=== PATIENT | female | born 1955 | race Caucasian/White ===

== ENCOUNTER 2017-04-12 09:58 | Inpatient (IN) | payer OTHER ==
[~2017-04-12] VITALS: Ht 167.6 cm; Wt 111.0 kg
[2017-04-12] MEDS ORDERED: LEVETIRACETAM 1000 MG (PMX) 100 ML IVPB STA (10:21)
[2017-04-12] MEDS ORDERED: ONDANSETRON 4 MG INJ IV STA (11:28)
[2017-04-12] MEDS ORDERED: SOD CHLORIDE 0.9% 1,000 ML IV STA (11:28)
[2017-04-12] MEDS ORDERED: MECLIZINE 12.5 MG TAB PO ONE (11:30)
[2017-04-12 11:46] LABS: BASOPHILS % 0.1 % (0.0-2.0); EOSINOPHILS # 0.1 10^3/ul (0.0-0.5); EOSINOPHILS % 1.5 % (0.0-7.0); HEMATOCRIT 32.2 % (37.0-47.0); HEMOGLOBIN 9.6 g/dl (12.0-16.0); LYMPHOCYTES # 1.8 10^3/ul (0.8-2.9); LYMPHOCYTES % 23.9 % (15.0-51.0); MEAN CORPUSCULAR HEMOGLOBIN 22.2 pg (29.0-33.0); MEAN CORPUSCULAR HGB CONC 29.8 g/dl (32.0-37.0); MEAN CORPUSCULAR VOLUME 74.5 fl (82.0-101.0); MEAN PLATELET VOLUME 10.4 fl (7.4-10.4); MONOCYTE # 0.8 10^3/ul (0.3-0.9); MONOCYTES % 10.5 % (0.0-11.0); NEUTROPHIL # 4.8 10^3/ul (1.6-7.5); NEUTROPHILS % 63.7 % (39.0-77.0); PLATELET COUNT 327 10^3/UL (140-415); RED BLOOD COUNT 4.32 10^6/ul (4.20-5.40); WHITE BLOOD COUNT 7.5 10^3/ul (4.8-10.8)
[2017-04-12 12:09] LABS: ALBUMIN/GLOBULIN RATIO 1.08; BILIRUBIN,INDIRECT 0.1 mg/dl (0-1.1); BILIRUBIN,TOTAL 0.1 mg/dl (0.2-1.3); CALCIUM 9.2 mg/dl (8.4-10.2); CREATININE 0.7 mg/dl (0.44-1.00); POTASSIUM 4.4 mmol/L (3.5-5.1); TOTAL PROTEIN 7.7 g/dl (6.1-8.1)
--- NOTE | 2017-04-12 14:11 | ERA ---
ER Documentation Chief Complaint Date/Time DATE: 04/12/17 TIME: 14:05 Chief Complaint SZ WHILE AT CLINIC. NO TRAUMA. NO NEURO DEF. NO DISTRESS NOTED. HPI This is a very pleasant 61-year-old female with a known history of epilepsy and high cholesterol. The patient states that over the past 48 hours she has felt weak and dizzy and lightheaded she has had multiple episodes where she felt as though she was going to pass out. She states she made an appointment today at the clinic for further evaluation. Awaiting in the clinic she had a witnessed tonic-clonic seizure. She stated she had not taken her antiepileptic medication this morning due to the severe dizziness. She did not lose urinary incontinence or bite her tongue during the seizure activity which lasted for roughly 1 minute. The patient did not fall or hit her head during the seizure activity. 911 was called and the patient was immediately transferred to the emergency department to be further evaluated. The patient denies a headache or neck pain. She has had no fevers or shaking or chills. She denies any frequency urgency or dysuria. She denies any numbness or tingling of her upper or lower extremities. The patient states she does take Lasix but is unaware if she has a history of congestive heart failure. She also has a history of emphysema and quit tobacco 5 years prior to arrival. She never required intubation in the past but utilizes her albuterol inhaler on a daily basis. [place] any difficulty breathing at this time. She denies any shortness of breath at rest or exertion. ROS All systems reviewed and are negative except as per history of present illness. 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 Well-nourished. HEENT:Normocephalic. Atraumatic.Pupils were equal round reactive to light. Moist mucous membranes.No tonsillar exudates. Endoscopy exam shows sharp optic disc bilaterally and venous pulsations are present. He is a septal hematoma. No hemotympanum. No lacerations of the oropharynx or tongue. Neck: No nuchal rigidity. No lymphadenopathy. No posterior cervical spine tenderness or step-offs. Respiratory: Not using accessory muscles of respiration.Lungs were clear to auscultation bilaterally. No rhonchi. No rales. No wheezing. Cardiovascular: Regular rate regular rhythm.No murmurs. No rubs were appreciated.S1, S2 normal. Distal pulses are palpable 2+ bilaterally. GI: Abdomen was soft. Nontender. Non Distended. No pulsatile abdominal masses or bruits. No rebound. No guarding. Bowel sounds were present and normal. Muscle skeletal: Full range of motion of both the upper and lower extremities bilaterally.Normal muscle tone.No assymetrical calf tenderness or swelling. Skin: No petechia, no purpura. No lesions on the palms or the soles of the feet. No maculopapular rash. NEURO: Patient was alert, awake, orientated x3.No facial droop. Gait observed and normal with no ataxia.Speech had regular rate and rhythm. No focal neurological deficits. Result Diagram: 04/12/17 1127 04/12/17 1127 Results 24 hrs Laboratory Tests Test 04/12/17 11:27 White Blood Count 7.510^3/ul Red Blood Count 4.3210^6/ul Hemoglobin 9.6g/dl Hematocrit 32.2% Mean Corpuscular Volume 74.5fl Mean Corpuscular Hemoglobin 22.2pg Mean Corpuscular Hemoglobin Concent 29.8g/dl Red Cell Distribution Width 17.0% Platelet Count 23355^3/UL Mean Platelet Volume 10.4fl Neutrophils % 63.7% Lymphocytes % 23.9% Monocytes % 10.5% Eosinophils % 1.5% Basophils % 0.1% Nucleated Red Blood Cells % 0.0/100WBC Neutrophils # 4.810^3/ul Lymphocytes # 1.810^3/ul Monocytes # 0.810^3/ul Eosinophils # 0.110^3/ul Basophils # 0.010^3/ul Nucleated Red Blood Cells # 0.010^3/ul Sodium Level 140mmol/L Potassium Level 4.4mmol/L Chloride Level 107mmol/L Carbon Dioxide Level 26mmol/L Anion Gap 11 Blood Urea Nitrogen 17mg/dl Creatinine 0.70mg/dl Glucose Level 77mg/dl Calcium Level 9.2mg/dl Total Bilirubin 0.1mg/dl Direct Bilirubin 0.00mg/dl Indirect Bilirubin 0.1mg/dl Aspartate Amino Transf (AST/SGOT) 34IU/L Alanine Aminotransferase (ALT/SGPT) 41IU/L Alkaline Phosphatase 77IU/L Total Protein 7.7g/dl Albumin 4.0g/dl Globulin 3.70g/dl Albumin/Globulin Ratio 1.08 Current Medications Medications (Trade) Dose Ordered Sig/Belinda Route PRN Reason Start Time Stop Time Status Last Admin Dose Admin Levetiracetam (Keppra 1,000mg/ 100ml (Pmx)) 100 ml @ 400 mls/hr ONCE STAT IVPB 04/12/17 10:21 04/12/17 10:35 DC 04/12/17 11:03 Meclizine HCl (Antivert) 25 mg ONCE ONCE PO 04/12/17 11:30 04/12/17 11:31 DC 04/12/17 11:38 Ondansetron HCl 4 mg 4 mg ONCE STAT IV 04/12/17 11:28 04/12/17 11:29 DC 04/12/17 11:38 Sodium Chloride (NS) 1,000 ml @ 1,000 mls/hr Q1H STAT IV 04/12/17 11:28 04/12/17 12:27 DC 04/12/17 11:38 Procedures/MDM This patient was seen and evaluated by myself. The patient presented to the emergency department complaining of dizziness. My differential diagnosis included but was not limited to hypovolemia, myocardial infarction, pulmonary embolism, hypoglycemia, hypoxia, anemia, vasovagal episode, hypothyroidism, anxiety, peripheral or central vertigo. The patient was placed on a cardiac rn, continuous pulse oximetry and IV access established by nursing staff. He received Zofran and Antivert with no improvement of her symptoms. CT scan of the head which showed no acute intracerebral hemorrhage mass-effect or midline shift. Please note that when the patient arrived she had had a witnessed tonic-clonic seizure just prior to arrival and was placed in seizure precautions and given IV Keppra prophylactically. The patient had no seizure activity while in the emergency department. 12 Lead EKG tracing ordered and reviewed by myself showed: Normal sinus rhythm of 84 bpm and no arrhythmia. NM interval normal. QRS duration normal. No ST segment elevation No ST segment depression. No changes consistent with acute ischemia. The patient will be admitted to the hospitalist for further evaluation hospitalist Dr. Galan. Departure Diagnosis: Primary Impression: Near syncope Additional Impression: Breakthrough seizure Condition: Serious Patient Instructions: Seizure, Recurrent [Adult] LUIS ARMANDO FRANCO Apr 12, 2017 14:11
--- NOTE | 2017-04-12 14:27 | RADRPT ---
PROCEDURE: CT Brain without contrast. CLINICAL INDICATION: Near syncope, headache. TECHNIQUE: A CT of the brain was performed on multidetector high-resolution CT scanner utilizing a xial sections from the skull base through the vertex without contrast. The scan was reviewed in sof t tissue brain and high frequency resolution bone algorithm windows. Images were reviewed on a high -resolution PACS workstation. One or more the following does reduction techniques were utilized: Aut omated exposure control, adjustment of the mA/ or kV according to patient's size, or use of iterativ e reconstruction technique. The exam CTDI = 44.46 mGy and the DLP = 630.2 mGy-cm. COMPARISON: None available. FINDINGS: The ventricles and sulci are mildly prominent indicative of volume loss. There is no intracranial h emorrhage, mass effect or midline shift. No abnormal intra-axial or extra-axial fluid collections a re seen. The fleming/white matter differentiation is preserved. There are mild scattered foci of hypoattenuation in the white matter, which are nonspecific in etiol ogy but likely reflect chronic small vessel ischemic changes. There are minimal intracranial vascul ar calcifications consistent with atherosclerosis. The visualized paranasal sinuses are essentially clear. IMPRESSION: 1. No acute intracranial hemorrhage, transcortical infarction or mass effect. 2. Minimal intracranial atherosclerosis and mild chronic small vessel ischemic changes. 3. Mild generalized cerebral volume loss. RPTAT: HH .Karol Belcher MD, MD Date Time Electronically viewed and signed by .Karol Belcher MD, MD on 04/12/2017 14:27 .N/
--- NOTE | 2017-04-12 14:28 | RADRPT ---
PROCEDURE: XR Chest. CLINICAL INDICATION: Chest pain. TECHNIQUE: Single frontal view. COMPARISON: None. FINDINGS: The lungs are clear. The heart size is normal. There is no pleural effusion. There is no pneumothorax. IMPRESSION: 1. Normal chest radiograph. RPTAT: QQ .Gareth Waller MD, Date Time Electronically viewed and signed by .Gareth Waller MD, on 04/12/2017 14:27 .R/
[2017-04-12] MEDS ORDERED: ACETAMINOPHEN 325 MG TAB PO PRN ×2 (14:30→16:00)
[2017-04-12] MEDS ORDERED: ONDANSETRON 4 MG INJ IV PRN ×2 (14:30→16:00)
[2017-04-12] MEDS ORDERED: CYCL-319 PO (15:03)
[2017-04-12] MEDS ORDERED: FURO40TA4 PO (15:11)
[2017-04-12] MEDS ORDERED: ALBU18HF INHALATION (15:12)
[2017-04-12] MEDS ORDERED: GABA300C16 PO (15:12)
[2017-04-12] MEDS ORDERED: ZOLP10TA5 PO (15:12)
[2017-04-12] MEDS ORDERED: TOPI25CA2 PO (15:13)
[2017-04-12] MEDS ORDERED: BUPR150T6 PO (15:13)
[2017-04-12] MEDS ORDERED: TIOT18CA INHALATION (15:14)
[2017-04-12 15:56] LABS: CREATINE KINASE 97 IU/L (23-200)
[2017-04-12] MEDS ORDERED: ALBUTEROL/IPRATROPIUM (NEB) 3 ML AMP HHN PRN (16:00)
[2017-04-12] MEDS ORDERED: NACL 0.9% 3 ML SYG IV SCH (16:00)
[2017-04-12] MEDS ORDERED: NA PHOSPHATE/BIPHOS 133 ML ENEMA PR PRN (16:00)
[2017-04-12] MEDS ORDERED: NITROGLYCERIN (SL) 0.4 MG TAB SL PRN (16:00)
[2017-04-12] MEDS ORDERED: hydrALAzine 20 MG INJ IV PRN (16:00)
[2017-04-12 16:08] LABS: B-TYPE NATRIURETIC PEPTIDE 18 PG/ML (0-125); CK-MB 0.53 ng/ml (0.0-2.4)
[2017-04-12 16:20] LABS: TROPONIN-I < 0.012 ng/ml (0.00-0.12)
[2017-04-12 16:57] VITALS: TEMP 98.2
[2017-04-12] MEDS ORDERED: LEVETIRACETAM 1000 MG (PMX) 100 ML IVPB SCH (17:00)
--- NOTE | 2017-04-12 17:18 | HP ---
DATE OF ADMISSION: 04/12/2017 CHIEF COMPLAINT: Seizure activity earlier today. HISTORY OF PRESENT ILLNESS: A 61-year-old female with past medical history of emphysema, questionable CHF, high cholesterol and prior seizure since 1979, low back pain who has been feeling weak and dizziness for the last 48 hours. She went to her primary care doctor's office earlier today but ended up having tonic-clonic seizure which lasted about 1 minute. No tongue biting. No leakage of any stool or urine. She apparently did not hit her head as well. She denies any fevers or chills. No upper or lower GI bleeding. No nausea or vomiting. No diarrhea. No constipation. She has had seizures since 1979. Her last seizure activity was about eight months ago. PAST MEDICAL HISTORY: As above. ALLERGIES: NO KNOWN DRUG ALLERGIES. HOME MEDICATIONS: Ventolin HFA 2 puffs inhaled every 6 hours, cyclobenzaprine 10 mg every 8 hours p.r.n., Spiriva inhaled daily, bupropion XL 150 mg daily, gabapentin 300 mg b.i.d., Ambien 10 mg at bedtime, topiramate 25 mg every evening, Lasix 40 mg daily. PAST SURGICAL HISTORY: She has had bilateral ankle surgery in the past. 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 Former smoker, quit about five years ago. FAMILY HISTORY: Noncontributory. PHYSICAL EXAMINATION: VITAL SIGNS: Today, T-max 98.8, pulse 88, respirations 20, blood pressure 138/75, satting 98% room air. GENERAL: Patient is lying in bed answering questions appropriately. No acute distress, alert and orient x3. HEENT: Pupils equal, round, react to light. Extraocular muscles intact. NECK: Supple. No thyromegaly. LUNGS: Clear to auscultation bilaterally. CARDIOVASCULAR: S1, S2 heard. No rubs or gallops. ABDOMEN: Soft, nontender, nondistended. Normal bowel sounds. No rebound or guarding. MUSCULOSKELETAL: No lower extremity edema bilaterally. NEUROLOGIC: No focal deficits. LABS: WBC 7.5, hemoglobin 9.6, hematocrit 33.2, platelets 327,000. The comprehensive metabolic panel is normal. DIAGNOSTICS: Head CT was performed today and shows no acute intracranial hemorrhages, infarctions or mass effect. Chest x-ray shows normal chest radiograph. ASSESSMENT AND PLAN: A 61-year-old female coming in with dizziness and lightheadedness for two days with seizure activity earlier today. 1. Seizure activity. Again, patient has had a history of seizures since 1979. Will admit the patient. Do neuro checks every 4 hours. Get EEG. Get neurology consult. Put her on Keppra 1000 mg IV b.i.d. Continue her topiramate as well. Consider checking a drug screen. 2. History of low back pain. For now, she will be on gabapentin and [place] p.r.n. 3. History of chronic obstructive pulmonary disease. Will continue Ventolin. Also DuoNebs p.r.n. as well. Consider restarting Spiriva. 4. Questionable history of congestive heart failure. She does take p.o. Lasix at home. No lower extremity swelling noted on the physical exam. Normal chest radiograph was found as well. Will go ahead and order 2D echocardiogram as well. Continue p.o. Lasix. 5. Deep venous thrombosis prophylaxis. Heparin subcutaneously. Consider physical therapy consult as well. Dictated By: Tank Fu MD /alverto/vangie /Document#: [id number]
[2017-04-12] MEDS ORDERED: ALBUTEROL 18 GM INHALER INH SCH (17:30)
[2017-04-12 18:04] VITALS: PULSE 90
[2017-04-12 18:32] VITALS: Ht 167.6 cm; Wt 111.0 kg
[2017-04-12 20:16] VITALS: BP 109/59; PULSE 89; RESP 20
[2017-04-12] MEDS: GABAPENTIN 300 MG CAP PO SCH (21:15)
[2017-04-12] MEDS: LEVETIRACETAM 1000 MG (PMX) 100 ML IVPB SCH (21:16)
[2017-04-12] MEDS: HEPARIN 5,000 UNIT/0.5 ML VIAL SC SCH (21:30)
[2017-04-12] MEDS: LORAZEPAM 2 MG INJ IV PRN (22:04)
[2017-04-12] MEDS: ZOLPIDEM 5 MG TAB PO PRN (23:13)
[2017-04-12] MEDS: ALBUTEROL 18 GM INHALER INH SCH (23:14)
[2017-04-12] MEDS: TOPIRAMATE SPRINKLE 25 MG CAP PO SCH (23:14)
--- NOTE | 2017-04-12 23:41 | RADRPT ---
PROCEDURE: MRI Brain without contrast. CLINICAL INDICATION: Near syncopal episode and seizure this morning TECHNIQUE: An MRI of the brain was performed on a high resolution hi-definition Lucidity (Member[employer]) 3.0 Shirley MRI s nelia utilizing the following sequences: Sagittal and axial T1 weighted, axial T2 weighted, coronal GRE, axial diffusion weighted with ADC mapping, coronal GRE, and axial FLAIR. COMPARISON: CT brain 04/12/2017 FINDINGS: The scalp and calvarium are normal. The orbits are normal. The bilateral paranasal sinuses demonstra te mild chronic mucosal thickening in the bilateral ethmoid and maxillary sinuses. The bilateral ma stoid air cells and middle ear cavities are clear. Punctate foci of FLAIR and T2-weighted sequences is noted in the bilateral subcortical white matter, bilateral centrum semiovale, bilateral periventricular white matter, and the tapan. This is compatib le with mild chronic microvascular ischemic disease. The ventricles and sulci are age appropriate. Mild diffuse volume loss is present. An empty sella is present. No evidence of intracranial hemorrha ge, mass effect or midline shift is present. . No diffusion weighted abnormalities are seen to sugge st the presence of acute ischemia or recent infarct. No hypointense signal abnormalities are seen o n the GRE images to suggest the presence of blood degradation products. Normal flow voids are vi sible in the proximal intracranial arteries and dural sinuses, indicating patency. IMPRESSION: 1. No evidence for acute intracranial infarcts, hemorrhage, or acute intracranial pathology. 2. Mild chronic microvascular ischemic disease and diffuse volume loss. 3. Mild chronic bilateral ethmoid and maxillary sinus disease RPTAT: HDC .Bhumika Oreilly MD, Date Time Electronically viewed and signed by .Bhumika Oreilly MD, MD on 04/12/2017 23:41 .C/
[2017-04-13] VITALS (12 sets, daily range): BP systolic 91–118; BP diastolic 52–66; PULSE 66–100; RESP 18–20
[2017-04-13] MEDS: ALBUTEROL 18 GM INHALER INH SCH ×4 (02:00→21:46)
[2017-04-13] MEDS: HYDROCODONE/APAP (5/325) TAB PO PRN (08:52)
[2017-04-13] MEDS: GABAPENTIN 300 MG CAP PO SCH ×2 (08:52→21:33)
[2017-04-13] MEDS: FUROSEMIDE 40 MG TAB PO SCH (08:53)
[2017-04-13] MEDS: HEPARIN 5,000 UNIT/0.5 ML VIAL SC SCH ×2 (08:57→21:34)
[2017-04-13] MEDS ORDERED: INFLUENZA VIRUS VACCINE 0.5 ML SYG IM* ONE (09:00)
[2017-04-13 09:03] LABS: BASOPHILS % 0.2 % (0.0-2.0); EOSINOPHILS # 0.1 10^3/ul (0.0-0.5); EOSINOPHILS % 2.4 % (0.0-7.0); HEMATOCRIT 31.4 % (37.0-47.0); HEMOGLOBIN 9.1 g/dl (12.0-16.0); LYMPHOCYTES # 1.2 10^3/ul (0.8-2.9); LYMPHOCYTES % 25.9 % (15.0-51.0); MEAN CORPUSCULAR HEMOGLOBIN 22.1 pg (29.0-33.0); MEAN CORPUSCULAR VOLUME 76.4 fl (82.0-101.0); MEAN PLATELET VOLUME 10.8 fl (7.4-10.4); MONOCYTE # 0.5 10^3/ul (0.3-0.9); MONOCYTES % 10.4 % (0.0-11.0); NEUTROPHIL # 2.8 10^3/ul (1.6-7.5); NEUTROPHILS % 60.9 % (39.0-77.0); PLATELET COUNT 266 10^3/UL (140-415); RED BLOOD COUNT 4.11 10^6/ul (4.20-5.40); WHITE BLOOD COUNT 4.5 10^3/ul (4.8-10.8)
[2017-04-13 09:34] LABS: CHOL/HDL RATIO 4.2 RATIO
[2017-04-13 09:37] LABS: CALCIUM 8.6 mg/dl (8.4-10.2); CREATININE 0.73 mg/dl (0.44-1.00); MAGNESIUM 2.1 mg/dl (1.7-2.5); PHOSPHORUS 4.2 mg/dl (2.5-4.9); POTASSIUM 4.3 mmol/L (3.5-5.1)
[2017-04-13 10:05] LABS: THYROID STIMULATING HORMONE 1.5 MIU/L (0.465-4.680)
[2017-04-13] MEDS: LEVETIRACETAM 1000 MG (PMX) 100 ML IVPB SCH ×2 (10:09→21:33)
[2017-04-13] MEDS: LORAZEPAM 2 MG INJ IV PRN (10:15)
--- NOTE | 2017-04-13 15:45 | PN ---
Date/Time of Note Date/Time of Note DATE: 04/13/17 TIME: 15:39 Assessment/Plan VTE Prophylaxis VTE Prophylaxis Intervention: heparin Lines/Catheters IV [facility] Urinary Cath still in place: No Assessment/Plan Chief Complaint/Hosp Course ASSESSMENT AND PLAN: 61-year-old female coming in with dizziness and lightheadedness for two days with seizure activity the day of admission. 1. Seizure activity. Again, patient has had a history of seizures since 1979. -Continue neuro checks every 4 hours. -Follow-up EEG results and neurology consult rec's. - Continue Keppra 1000 mg IV b.i.d. Continue her topiramate as well. - Consider checking a drug screen. 2. History of low back pain. For now, she will be on gabapentin and [place]ike p.r.n. 3. History of chronic obstructive pulmonary disease. Will continue Ventolin. Also DuoNebs p.r.n. as well. Consider restarting Spiriva. 4. Questionable history of congestive heart failure. She does take p.o. Lasix at home. No lower extremity swelling noted on the physical exam. Normal chest radiograph was found as well. - Follow-up 2D echocardiogram as well. - Continue p.o. Lasix. 5. Deep venous thrombosis prophylaxis. Heparin subcutaneously. Consider physical therapy consult as well. Problems: Subjective 24 Hr Interval Summary Free Text/Dictation Per nursing staff no seizure activity since admission. EEG results still pending. Exam/Review of Systems Vital Signs Vitals Vital Signs Date Time Temp Pulse Resp B/P Pulse Ox O2 Delivery O2 Flow Rate FiO2 04/13/17 13:12 100 04/13/17 11:50 98.1 18 91/63 97 04/13/17 08:15 Nasal Cannula 2.0 Intake and Output 04/12/17 04/12/17 04/13/17 15:00 23:00 07:00 Intake Total 400 ml 0 ml Balance 400 ml 0 ml Exam GENERAL: Patient is sleeping, no acute distress, alert and orient x3. HEENT: Pupils equal, round, react to light. Extraocular muscles intact. NECK: Supple. No thyromegaly. LUNGS: Clear to auscultation bilaterally. CARDIOVASCULAR: S1, S2 heard. No rubs or gallops. ABDOMEN: Soft, nontender, nondistended. Normal bowel sounds. No rebound or guarding. MUSCULOSKELETAL: No lower extremity edema bilaterally. NEUROLOGIC: No focal deficits. Results Result Diagram: 04/13/17 0808 04/13/17 0808 Results 24 hrs Laboratory Tests Test 04/13/17 08:08 White Blood Count 4.5 #L Red Blood Count 4.11 L Hemoglobin 9.1 L Hematocrit 31.4 L Mean Corpuscular Volume 76.4 L Mean Corpuscular Hemoglobin 22.1 L Mean Corpuscular Hemoglobin Concent 29.0 L Red Cell Distribution Width 17.0 H Platelet Count 266 Mean Platelet Volume 10.8 H Neutrophils % 60.9 Lymphocytes % 25.9 Monocytes % 10.4 Eosinophils % 2.4 Basophils % 0.2 Nucleated Red Blood Cells % 0.0 Neutrophils # 2.8 Lymphocytes # 1.2 Monocytes # 0.5 Eosinophils # 0.1 Basophils # 0.0 Nucleated Red Blood Cells # 0.0 Sodium Level 142 Potassium Level 4.3 Chloride Level 107 Carbon Dioxide Level 30 Anion Gap 9 Blood Urea Nitrogen 14 Creatinine 0.73 Glucose Level 106 Hemoglobin A1c 5.8 Calcium Level 8.6 Phosphorus Level 4.2 Magnesium Level 2.1 Triglycerides Level 154 H Cholesterol Level 128 LDL Cholesterol, Calculated 67 HDL Cholesterol 30 L Cholesterol/HDL Ratio 4.2 Thyroid Stimulating Hormone (TSH) 1.500 Medications Medications Current Medications Ondansetron HCl (Zofran Inj) 4 mg Q6H PRN IV NAUSEA AND/OR VOMITING; Start at 16:00 Acetaminophen (Tylenol Tab) 650 mg Q6H PRN PO PAIN LEVEL 1-3 OR FEVER; Start at 16:00 Acetaminophen/ Hydrocodone Bitart (Pike (5/325)) 1 tab Q6H PRN PO MODERATE PAIN LEVEL 4-6 Last administered on 04/13/17t 08:52; Admin Dose 1 TAB; Start at 16:00 Morphine Sulfate (morphine) 2 mg Q4H PRN IV SEVERE PAIN LEVEL 7-10; Start 04/12 at 16:00 Docusate Sodium (Colace) 100 mg Q12H PRN PO CONSTIPATION; Start 04/12/17 at 16: 00 Magnesium Hydroxide (Milk Of Mag) 30 ml DAILY PRN PO CONSTIPATION; Start at 16:00 Sodium Biphosphate/ Sodium Phosphate (Fleet Enema) 133 ml DAILY PRN [place] CONSTIPATION; Start 04/12/17 at 16:00 Heparin Sodium (Porcine) (Heparin (5000 Units/0.5 ml)) 5,000 unit Q12 SC Last administered on 04/13/17 08:57; Admin Dose 5,000 UNIT; Start 04/12/17 at 21:00 Lorazepam (Ativan) 0.5 mg Q6H PRN IV ANXIETY Last administered on 04/13/17 10: 15; Admin Dose 0.5 MG; Start 04/12/17 at 16:00 Hydralazine HCl (Apresoline) 10 mg Q6H PRN IV ELEVATED BLOOD PRESSURE; Start at 16:00 Nitroglycerin (Nitroglycerin (Sl Tab) 0.4 Mg) 1 tab Q5M PRN SL ANGINA; Start at 16:00 Furosemide (Lasix) 40 mg DAILY PO Last administered on 04/13/17 08:53; Admin Dose 40 MG; Start 04/13/17 at 09:00 Gabapentin (Neurontin) 300 mg BID PO Last administered on 04/13/17 08:52; Admin Dose 300 MG; Start 04/12/17 at 21:00 Topiramate (Topamax Sprinkle) 25 mg QPM PO Last administered on 04/12/17 23:14 ; Admin Dose 25 MG; Start 04/12/17 at 21:00 Zolpidem Tartrate 10 mg 10 mg QHS PRN PO INSOMNIA Last administered on 23:13; Admin Dose 10 MG; Start 04/12/17 at 16:00 Levetiracetam (Keppra 1,000mg/ 100ml (Pmx)) 100 ml @ 400 mls/hr Q12 IVPB Last administered on 04/13/17 10:09; Admin Dose 400 MLS/HR; Start 04/12/17 at 21:00 CHEYENNE JACKSON Apr 13, 2017 15:45
[2017-04-13] MEDS: TOPIRAMATE SPRINKLE 25 MG CAP PO SCH (21:33)
[2017-04-13] MEDS: ZOLPIDEM 5 MG TAB PO PRN (21:46)
[2017-04-14] VITALS (11 sets, daily range): BP systolic 96–114; BP diastolic 61–72; PULSE 79–100; RESP 18–19
[2017-04-14] MEDS: ALBUTEROL 18 GM INHALER INH SCH ×4 (02:19→21:08)
--- NOTE | 2017-04-14 06:40 | PN ---
DATE: 04/14/2017 ELECTROENCEPHALOGRAM: The patient is a 61-year-old lady with a past medical history of seizures, when the patient suffered seizure activity while she was in the doctor's office, kind of tonoclonic. EEG done using 10-20 international electrode system with photic stimulation. Bilateral occipital hemispheres showed delta and theta waves, 4-7 Hertz, low amplitude, symmetric bilaterally. Some electromyogram artifact recorded. Some sharp waves recorded in the left temporal area. IMPRESSION: This is an abnormal electroencephalogram showing sharp waves on top of generalized slowing consistent with a history of underlying postictal status. Follow-up EEG may be needed if clinically indicated. Again, thank you. Dictated By: Fili Nagel MD /alverto/jessica /Document#: [id number]
[2017-04-14] MEDS: LEVETIRACETAM 1000 MG (PMX) 100 ML IVPB SCH ×2 (09:33→21:19)
[2017-04-14] MEDS: GABAPENTIN 300 MG CAP PO SCH ×2 (09:33→21:08)
[2017-04-14] MEDS: FUROSEMIDE 40 MG TAB PO SCH (09:38)
[2017-04-14] MEDS: HEPARIN 5,000 UNIT/0.5 ML VIAL SC SCH ×2 (09:39→21:10)
[2017-04-14 10:56] LABS: BASOPHILS % 0.2 % (0.0-2.0); EOSINOPHILS # 0.1 10^3/ul (0.0-0.5); EOSINOPHILS % 2.4 % (0.0-7.0); HEMATOCRIT 33.3 % (37.0-47.0); HEMOGLOBIN 9.9 g/dl (12.0-16.0); LYMPHOCYTES # 1.3 10^3/ul (0.8-2.9); LYMPHOCYTES % 28.8 % (15.0-51.0); MEAN CORPUSCULAR HEMOGLOBIN 22.5 pg (29.0-33.0); MEAN CORPUSCULAR HGB CONC 29.7 g/dl (32.0-37.0); MEAN CORPUSCULAR VOLUME 75.7 fl (82.0-101.0); MEAN PLATELET VOLUME 10.2 fl (7.4-10.4); MONOCYTE # 0.5 10^3/ul (0.3-0.9); MONOCYTES % 10.5 % (0.0-11.0); NEUTROPHIL # 2.7 10^3/ul (1.6-7.5); NEUTROPHILS % 57.7 % (39.0-77.0); PLATELET COUNT 279 10^3/UL (140-415); RED CELL DISTRIBUTION WIDTH 16.4 % (11.5-14.5); WHITE BLOOD COUNT 4.6 10^3/ul (4.8-10.8)
[2017-04-14 11:07] LABS: CALCIUM 8.8 mg/dl (8.4-10.2); CREATININE 0.74 mg/dl (0.44-1.00); POTASSIUM 4.1 mmol/L (3.5-5.1)
[2017-04-14] MEDS: morphine 2 MG INJ IV PRN (11:26)
--- NOTE | 2017-04-14 11:43 | RADRPT ---
Echocardiogram Report Patient Name: VEE PLUMMER Gender: Female Date: 1955 Study Date: 13-Apr-2017 Beam Saw Operator: BLANCO Location: E Ref. Physician: CHEYENNE JACKSON Quality: Adequate Procedures: Transthoracic echocardiogram with complete 2D, M-Mode, and Doppler examination. Indications: Congestive Heart Failure. 2D/M Mode Doppler Measurement Value Normal Ranges Measurement Value Normal Ranges AoR Diam MM 3.5 cm AV Peak Alcides 1.4 m/sec LVIDd 2D 4.3 3.5 - 5.6 cm AV Peak PG 7.3 mmHg LVIDs 2D 3.0 2.1 - 4.1 cm LVOT Peak Alcides 0.9 m/sec LVPWd 2D 1.1 0.6 - 1.1 cm LVOT Peak PG 3.1 mmHg IVSd 2D 1.1 0.6 - 1.1 cm MV E Peak Alcides 0.7 m/sec EDV 2D 81.6 cm3 MV A Peak Alcides 1.0 m/sec ESV 2D 26.3 cm3 MV E/A 0.7 LA Dimen 2D 3.7 2.3 - 4.0 cm MV Decel Time 193 msec MV Decel [place] 4 MV E/A 0.7 PV Peak Alcides 0.9 m/sec PV Peak PG 3.0 mmHg Findings Left Ventricle: Normal left ventricular systolic function. Normal left ventricular cavity size. Normal left ventricular wall thickness. Ejection fraction is visually estimated at 60 %. Tissue Doppler/Mitral Doppler indices are consistent with impaired relaxation (Stage I diastolic dysfunction). E/E`=9. Right Ventricle: Normal right ventricular size. Normal right ventricular systolic function. Left Atrium: The left atrium is normal in size. Right Atrium: The right atrium is normal in size. Atrial Septum: Normal atrial septum. Mitral Valve: Normal appearance of the mitral valve. No mitral valve regurgitation is seen. Aortic Valve: No significant aortic stenosis or insufficiency. Normal trileaflet aortic valve structure. Tricuspid Valve: Normal appearance of the tricuspid valve. No evidence of tricuspid regurgitation. Pulmonic Valve: Normal pulmonic valve appearance. No evidence of pulmonic regurgitation. Pericardium: Normal pericardium with no significant pericardial effusion. Aorta: Normal aortic root. IVC: Normal size and normal respiratory collapse consistent with normal right atrial pressure. Pulmonary Artery: Normal pulmonary artery size. Conclusions 1.Normal left ventricular systolic function. Normal left ventricular cavity size. Normal left ventricular wall thickness. Ejection fraction is visually estimated at 60 %. Tissue Doppler/Mitral Doppler indices are consistent with impaired relaxation (Stage I diastolic dysfunction). E/E`=9. Electronically Signed By: Tate Bell 14-Apr-2017 11:43:07 -0700 Patient Name: VEE PLUMMER Study Date: 13-Apr-2017 [id number]
--- NOTE | 2017-04-14 11:56 | PN ---
Date/Time of Note Date/Time of Note DATE: 04/14/17 TIME: 11:52 Assessment/Plan VTE Prophylaxis VTE Prophylaxis Intervention: heparin Lines/Catheters IV Catheter Type (from [facility]): Peripheral IV Urinary Cath still in place: No Assessment/Plan Chief Complaint/Hosp Course ASSESSMENT AND PLAN: 61-year-old female coming in with dizziness and lightheadedness for two days with seizure activity the day of admission. 1. Seizure activity. Again, patient has had a history of seizures since 1979. EEG results noted -Continue neuro checks every 4 hours. -Follow-up neurology consult rec's. - Continue Keppra 1000 mg IV b.i.d. Continue her topiramate as well. 2. History of low back pain. For now, she will be on gabapentin and [place] p.r.n. 3. History of chronic obstructive pulmonary disease. Will continue Ventolin. Also DuoNebs p.r.n. as well. Consider restarting Spiriva. 4. Questionable history of congestive heart failure. She does take p.o. Lasix at home. No lower extremity swelling noted on the physical exam. Normal chest radiograph was found as well. - Follow-up 2D echocardiogram as well. - Continue p.o. Lasix. 5. Deep venous thrombosis prophylaxis. Heparin subcutaneously. Consider physical therapy consult as well. Problems: Subjective 24 Hr Interval Summary Free Text/Dictation No acute events overnight. No seizure activity. Exam/Review of Systems Vital Signs Vitals Vital Signs Date Time Temp Pulse Resp B/P Pulse Ox O2 Delivery O2 Flow Rate FiO2 04/14/17 11:28 97.8 71 18 114/65 98 04/14/17 09:52 Nasal Cannula 2.0 Intake and Output 04/13/17 04/13/17 04/14/17 15:00 23:00 07:00 Intake Total 400 ml 850 ml 600 ml Output Total 1200 ml Balance 400 ml -350 ml 600 ml Exam GENERAL: Lying in bed, no acute distress, alert and orient x3. HEENT: Pupils equal, round, react to light. Extraocular muscles intact. NECK: Supple. No thyromegaly. LUNGS: Clear to auscultation bilaterally. CARDIOVASCULAR: S1, S2 heard. No rubs or gallops. ABDOMEN: Soft, nontender, nondistended. Normal bowel sounds. No rebound or guarding. MUSCULOSKELETAL: No lower extremity edema bilaterally. NEUROLOGIC: No focal deficits. Results Result Diagram: 04/14/17 1025 04/14/17 1025 Results 24 hrs Laboratory Tests Test 04/14/17 10:25 White Blood Count 4.6 L Red Blood Count 4.40 Hemoglobin 9.9 L Hematocrit 33.3 L Mean Corpuscular Volume 75.7 L Mean Corpuscular Hemoglobin 22.5 L Mean Corpuscular Hemoglobin Concent 29.7 L Red Cell Distribution Width 16.4 H Platelet Count 279 Mean Platelet Volume 10.2 Neutrophils % 57.7 Lymphocytes % 28.8 Monocytes % 10.5 Eosinophils % 2.4 Basophils % 0.2 Nucleated Red Blood Cells % 0.0 Neutrophils # 2.7 Lymphocytes # 1.3 Monocytes # 0.5 Eosinophils # 0.1 Basophils # 0.0 Nucleated Red Blood Cells # 0.0 Sodium Level 142 Potassium Level 4.1 Chloride Level 106 Carbon Dioxide Level 29 Anion Gap 11 Blood Urea Nitrogen 18 Creatinine 0.74 Glucose Level 111 Calcium Level 8.8 Medications Medications Current Medications Ondansetron HCl (Zofran Inj) 4 mg Q6H PRN IV NAUSEA AND/OR VOMITING; Start at 16:00 Acetaminophen (Tylenol Tab) 650 mg Q6H PRN PO PAIN LEVEL 1-3 OR FEVER; Start at 16:00 Acetaminophen/ Hydrocodone Bitart ([place] (5/325)) 1 tab Q6H PRN PO MODERATE PAIN LEVEL 4-6 Last administered on 04/13/17 08:52; Admin Dose 1 TAB; Start at 16:00 Morphine Sulfate (morphine) 2 mg Q4H PRN IV SEVERE PAIN LEVEL 7-10 Last administered on 04/14/17 11:26; Admin Dose 2 MG; Start 04/12/17 at 16:00 Docusate Sodium (Colace) 100 mg Q12H PRN PO CONSTIPATION; Start 04/12/17 at 16: 00 Magnesium Hydroxide (Milk Of Mag) 30 ml DAILY PRN PO CONSTIPATION; Start at 16:00 Sodium Biphosphate/ Sodium Phosphate (Fleet Enema) 133 ml DAILY PRN [place] CONSTIPATION; Start 04/12/17 at 16:00 Heparin Sodium (Porcine) (Heparin (5000 Units/0.5 ml)) 5,000 unit Q12 SC Last administered on 04/14/17 09:39; Admin Dose 5,000 UNIT; Start 04/12/17 at 21:00 Lorazepam (Ativan) 0.5 mg Q6H PRN IV ANXIETY Last administered on 04/13/17 10: 15; Admin Dose 0.5 MG; Start 04/12/17 at 16:00 Hydralazine HCl (Apresoline) 10 mg Q6H PRN IV ELEVATED BLOOD PRESSURE; Start at 16:00 Nitroglycerin (Nitroglycerin (Sl Tab) 0.4 Mg) 1 tab Q5M PRN SL ANGINA; Start at 16:00 Furosemide (Lasix) 40 mg DAILY PO Last administered on 04/14/17 09:38; Admin Dose 40 MG; Start 04/13/17 at 09:00 Gabapentin (Neurontin) 300 mg BID PO Last administered on 04/14/17 09:33; Admin Dose 300 MG; Start 04/12/17 at 21:00 Topiramate (Topamax Sprinkle) 25 mg QPM PO Last administered on 04/13/17 21:33 ; Admin Dose 25 MG; Start 04/12/17 at 21:00 Zolpidem Tartrate 10 mg 10 mg QHS PRN PO INSOMNIA Last administered on 21:46; Admin Dose 10 MG; Start 04/12/17 at 16:00 Levetiracetam (Keppra 1,000mg/ 100ml (Pmx)) 100 ml @ 400 mls/hr Q12 IVPB Last administered on 04/14/17 09:33; Admin Dose 400 MLS/HR; Start 04/12/17 at 21:00 Procedures Procedures EEG: IMPRESSION: This is an abnormal electroencephalogram showing sharp waves on top of generalized slowing consistent with a history of underlying postictal status. Follow-up EEG may be needed if clinically indicated. CHEYENNE JACKSON Apr 14, 2017 11:56
[2017-04-14] MEDS: TOPIRAMATE SPRINKLE 25 MG CAP PO SCH (21:08)
[2017-04-14] MEDS: ZOLPIDEM 5 MG TAB PO PRN (22:45)
--- NOTE | 2017-04-14 22:50 | HKNOTE ---
DATE OF SERVICE: 04/14/2017 HISTORY OF PRESENT ILLNESS: The patient is [id number] with a past medical history of seizure disorder. The patient admitted with suspected underlying seizure activity. The patient has a history of emphysema, congestive heart failure, hypercholesterolemia, which the patient suffered a tonic-clonic seizure at her primary physician's office. CURRENT MEDICATIONS: Which includes: 1. Lasix 40 mg once a day. 2. Neurontin 300 mg 3 times a day. 3. Keppra 500 mg twice a day. 4. Zofran 4 mg once a day. 5. [place] as needed. 6. Morphine sulfate 2 mg every 4 hours as needed. 7. Colace 100 mg twice a day. 8. Lorazepam 0.5 mg twice a day. 9. Hydralazine 10 mg every 6 hours as needed. 10. Lorazepam 0.5 mg once a day. 11. Nitroglycerin tablet as needed. 12. Ambien 10 mg once at night as needed. PHYSICAL EXAMINATION: GENERAL: The patient is alert, awake and oriented. Following simple commands. HEART: Regular rate and rhythm. LUNGS: Equal breath sounds. ABDOMEN: Soft, nondistended, nontender. DIGITAL ASSOCIATE: Cranial nerves II: Pupils equal on both sides. Reactive to light. Cranial nerve III, IV, and : Extraocular muscles intact. No nystagmus. Cranial nerve V: Equal sensation to face. Cranial nerve VII: Symmetrical face. Cranial nerve VIII: Decreased hearing bilaterally. Cranial nerve IX and X: Elevated palate. Cranial nerve XI: Shoulder shrug 5/5. Cranial nerve XII: Elevated tongue. Motor exam: Decreased right hand penal officer 4+/5. Sensation: Coordination: Ujupjr-ik-irrk is intact. ASSESSMENT AND PLAN: 1. The patient is [id number] with underlying seizure activity. We will followup the patient. The patient had an electroencephalogram, shows postictal status. Continue the patient on Keppra 500 mg twice a day for now. Give her Ativan 2 mg IV every 4 hours as needed for any seizure activity. We will keep the patient under seizure precautions for now and aspiration precautions. The patient continued Topamax 25 mg with a good prophylaxis for the seizure as well as underlying headaches. 2. History of hypertension. Keep the blood pressure under 140/90 or less with the patient already on Lasix 40 mg once a day for that and hydralazine 10 mg p.r.n. for elevated blood pressure. 3. Insomnia. Keep the patient on Ambien 10 mg once at night as needed. Again, thank you for asking me to see the patient with you. Dictated By: Fili Nagel MD /alverto/diogenes /Document#: [id number]
[2017-04-15] VITALS (12 sets, daily range): BP systolic 93–113; BP diastolic 54–76; PULSE 89–101; RESP 18–20
[2017-04-15] MEDS: ALBUTEROL 18 GM INHALER INH SCH ×4 (02:00→20:00)
--- NOTE | 2017-04-15 07:06 | CONS ---
DATE OF SERVICE: 04/14/2017 HISTORY OF PRESENT ILLNESS: The patient is 61-year-old with a past medical history of seizures since 1979, low back ache, dizzy spells for the last 48 hours, in which the patient has a possibility of tonic-clonic seizure at her primary doctors office, in which the patient was transferred to [facility] for more intervention and treatment. PHYSICAL EXAMINATION: GENERAL: The patient is alert, awake and oriented. Follows simple commands. HEART: Regular rate and rhythm. LUNGS: Equal breath sounds. ABDOMEN: Soft, nondistended, nontender. BOILING OFF WINDER: CN II: Pupils equal on both sides. CN III, IV, and : Extraocular muscles intact. CN VIII: Equal hearing bilaterally. CN IX and X: . MOTOR: Decreased bilateral hand hydroblaster, 4+/5. SENSATION: . COORDINATION: Pyujin-ip-pgcc test intact. HEART: Regular rate and rhythm. ASSESSMENT AND PLAN: 1. The patient is 64-[id number] with underlying seizure activity. Keep the patient on Keppra 1000 twice a day. Continue her Topamax she used to take. Keep the patient on seizure precautions Ativan 2 mg IV as needed for seizures. 2. EEG showed postictal status. 3. Status post low back ache, in which the patient is on gabapentin and [place]. 4. Keep the patient on deep venous thrombosis prophylaxis and decubitus ulcer prophylaxis. Dictated By: Fili Nagel MD /alverto/diogenes /Document#: [id number]
--- NOTE | 2017-04-15 07:18 | CONS ---
DATE OF SERVICE: 04/12/2017 CHIEF COMPLAINT: Patient is 62-year-old lady with past medical history of seizure disorder. Patient was on Keppra twice a day. There is a patient history when she went to her primary doctor, there had tonic-clonic seizure activity, and patient admitted to hospital for more evaluation and treatment. HOME MEDICATIONS: Upon admission include: 1. Cyclobenzaprine 10 mg every 8 hours. 2. Spiriva inhaled once a day. 3. Wellbutrin XL 150 mg once a day. 4. Gabapentin 300 mg twice a day. 5. Ambien 10 mg once a day. 6. Topiramate 12 mg every day. 7. Lasix 40 mg once a day. PAST MEDICAL HISTORY: Bilateral ankle surgery. SOCIAL HISTORY: The patient is a former heroin user at 18 years old, former smoker, quit 5 years ago. FAMILY HISTORY: Unavailable. PHYSICAL EXAMINATION: GENERAL: The patient is alert, awake, oriented, following simple commands. HEART: Regular rate and rhythm. LUNGS: Equal breath sounds. ABDOMEN: Soft, no distention, no tenderness. NEUROLOGIC: Cranial nerve II: Pupils equal on both sides, reactive to light. Cranial nerves II, IV and : Extraocular muscles intact. Cranial nerve V: Equal sensation to face. Cranial nerve VII: Symmetrical face. Cranial nerve VIII: Decreased hearing bilaterally. Cranial nerves IX and X: Elevates palate. Cranial nerve XI: Elevates shoulder 5/5. Cranial nerve XII: With straight tongue. Motor exam: Decreased 4+/5. Sensation decreased in the left upper extremity for light touch and temperature. Coordination: Finger to nose testing intact. Motor exam: Decreased temperature, coordination. Ailxpa-kf-mwvk intact. ASSESSMENT AND PLAN: 1. Patient is 62-year-old with underlying seizure disorder, , Keppra 1000 twice a day. Followup the patient with seizure precaution and fall precaution. It Program Auditor her Ativan 2 mg IV every 4 hours as needed for seizure activity. I will followup the patient's electroencephalogram for more treatment. 2. Status post low back ache. Followup the patient's nerve conduction study and the when she is stable. Continue the patient on [place] from now as needed. 3. Keep the patient on fall precautions, seizure precautions from now. Again, thank you for asking me to see the patient with you. Dictated By: Fili Nagel MD /alverto/vangie /Document#: [id number]
[2017-04-15 07:54] LABS: BASOPHILS % 0.2 % (0.0-2.0); EOSINOPHILS # 0.1 10^3/ul (0.0-0.5); EOSINOPHILS % 1.8 % (0.0-7.0); HEMATOCRIT 34.1 % (37.0-47.0); HEMOGLOBIN 9.9 g/dl (12.0-16.0); LYMPHOCYTES # 1.5 10^3/ul (0.8-2.9); LYMPHOCYTES % 25.8 % (15.0-51.0); MEAN CORPUSCULAR HEMOGLOBIN 21.8 pg (29.0-33.0); MEAN CORPUSCULAR VOLUME 75.1 fl (82.0-101.0); MEAN PLATELET VOLUME 10.6 fl (7.4-10.4); MONOCYTE # 0.5 10^3/ul (0.3-0.9); MONOCYTES % 8.3 % (0.0-11.0); NEUTROPHIL # 3.6 10^3/ul (1.6-7.5); NEUTROPHILS % 63.5 % (39.0-77.0); PLATELET COUNT 307 10^3/UL (140-415); RED BLOOD COUNT 4.54 10^6/ul (4.20-5.40); RED CELL DISTRIBUTION WIDTH 16.6 % (11.5-14.5); WHITE BLOOD COUNT 5.6 10^3/ul (4.8-10.8)
[2017-04-15] MEDS: LEVETIRACETAM 1000 MG (PMX) 100 ML IVPB SCH (08:00)
[2017-04-15] MEDS: HEPARIN 5,000 UNIT/0.5 ML VIAL SC SCH ×2 (08:01→21:38)
[2017-04-15] MEDS: DOCUSATE SODIUM 100 MG CAP PO PRN (08:02)
[2017-04-15] MEDS: MAGNESIUM HYDROXIDE 30ML CUP PO PRN (08:02)
[2017-04-15] MEDS: FUROSEMIDE 40 MG TAB PO SCH (08:05)
[2017-04-15] MEDS: GABAPENTIN 300 MG CAP PO SCH ×2 (08:05→21:37)
[2017-04-15] MEDS: morphine 2 MG INJ IV PRN ×2 (08:13→12:32)
[2017-04-15 08:16] LABS: CALCIUM 9.1 mg/dl (8.4-10.2); CREATININE 0.8 mg/dl (0.44-1.00)
--- NOTE | 2017-04-15 17:37 | PN ---
Date/Time of Note Date/Time of Note DATE: 04/15/17 TIME: 17:36 Assessment/Plan VTE Prophylaxis VTE Prophylaxis Intervention: SCD's Lines/Catheters IV Catheter Type (from Nrsg): Peripheral IV Urinary Cath still in place: No Assessment/Plan Assessment/Plan 62 yo F with known h/o epilepsy admitted for seizures -home topiramate continued, Keppra added. No seizures since arriving on the floor -will talk to neuro in the AM about discharge home. hold home lasix given c/o lightheadedness with PT. EF 60% Subjective 24 Hr Interval Summary Free Text/Dictation Pt states she got a little lightheaded when working with PT Exam/Review of Systems Vital Signs Vitals Vital Signs Date Time Temp Pulse Resp B/P Pulse Ox O2 Delivery O2 Flow Rate FiO2 04/15/17 16:24 98 04/15/17 15:51 98.1 18 109/56 95 04/15/17 07:41 2.0 04/15/17 07:38 Nasal Cannula Intake and Output 04/14/17 04/14/17 04/15/17 15:00 23:00 07:00 Intake Total 100 ml 800 ml 550 ml Balance 100 ml 800 ml 550 ml Exam nad no mrg lungs clear abd soft no rashes EEG report pending Results Result Diagram: 04/15/1720 04/15/17 0720 Results 24 hrs Laboratory Tests Test 04/15/17 07:20 White Blood Count 5.6 # Red Blood Count 4.54 Hemoglobin 9.9 L Hematocrit 34.1 L Mean Corpuscular Volume 75.1 L Mean Corpuscular Hemoglobin 21.8 L Mean Corpuscular Hemoglobin Concent 29.0 L Red Cell Distribution Width 16.6 H Platelet Count 307 Mean Platelet Volume 10.6 H Neutrophils % 63.5 Lymphocytes % 25.8 Monocytes % 8.3 Eosinophils % 1.8 Basophils % 0.2 Nucleated Red Blood Cells % 0.0 Neutrophils # 3.6 Lymphocytes # 1.5 Monocytes # 0.5 Eosinophils # 0.1 Basophils # 0.0 Nucleated Red Blood Cells # 0.0 Sodium Level 139 Potassium Level 4.0 Chloride Level 102 Carbon Dioxide Level 30 Anion Gap 11 Blood Urea Nitrogen 20 Creatinine 0.80 Glucose Level 108 Calcium Level 9.1 Medications Medications Current Medications Ondansetron HCl (Zofran Inj) 4 mg Q6H PRN IV NAUSEA AND/OR VOMITING; Start at 16:00 Acetaminophen (Tylenol Tab) 650 mg Q6H PRN PO PAIN LEVEL 1-3 OR FEVER; Start at 16:00 Acetaminophen/ Hydrocodone Bitart ([place] (5/325)) 1 tab Q6H PRN PO MODERATE PAIN LEVEL 4-6 Last administered on 04/13/17 08:52; Admin Dose 1 TAB; Start at 16:00 Morphine Sulfate (morphine) 2 mg Q4H PRN IV SEVERE PAIN LEVEL 7-10 Last administered on 04/15/17 12:32; Admin Dose 2 MG; Start 04/12/17 at 16:00 Docusate Sodium (Colace) 100 mg Q12H PRN PO CONSTIPATION Last administered on 04/15/17 08:02; Admin Dose 100 MG; Start 04/12/17 at 16:00 Magnesium Hydroxide (Milk Of Mag) 30 ml DAILY PRN PO CONSTIPATION Last administered on 04/15/17 08:02; Admin Dose 30 ML; Start 04/12/17 at 16:00 Sodium Biphosphate/ Sodium Phosphate (Fleet Enema) 133 ml DAILY PRN [place] CONSTIPATION; Start 04/12/17 at 16:00 Heparin Sodium (Porcine) (Heparin (5000 Units/0.5 ml)) 5,000 unit Q12 SC Last administered on 04/15/17 08:01; Admin Dose 5,000 UNIT; Start 04/12/17 at 21:00 Lorazepam (Ativan) 0.5 mg Q6H PRN IV ANXIETY Last administered on 04/13/17 10: 15; Admin Dose 0.5 MG; Start 04/12/17 at 16:00 Nitroglycerin (Nitroglycerin (Sl Tab) 0.4 Mg) 1 tab Q5M PRN SL ANGINA; Start at 16:00 Gabapentin (Neurontin) 300 mg BID PO Last administered on 04/15/17 08:05; Admin Dose 300 MG; Start 04/12/17 at 21:00 Topiramate (Topamax Sprinkle) 25 mg QPM PO Last administered on 04/14/17 21:08 ; Admin Dose 25 MG; Start 04/12/17 at 21:00 Zolpidem Tartrate 10 mg 10 mg QHS PRN PO INSOMNIA Last administered on 22:45; Admin Dose 10 MG; Start 04/12/17 at 16:00 Levetiracetam (Keppra 1,000mg/ 100ml (Pmx)) 100 ml @ 400 mls/hr Q12 IVPB Last administered on 04/15/17 08:00; Admin Dose 400 MLS/HR; Start 04/12/17 at 21:00 LIZETH MADRIGAL MD Apr 15, 2017 17:37
[2017-04-15] MEDS ORDERED: LORAZEPAM 0.5 MG TAB PO PRN (18:00)
[2017-04-15] MEDS: HYDROCODONE/APAP (5/325) TAB PO PRN (19:06)
[2017-04-15] MEDS: TOPIRAMATE SPRINKLE 25 MG CAP PO SCH (21:37)
[2017-04-15] MEDS: LEVETIRACETAM 500 MG TAB PO SCH (21:37)
[2017-04-16] VITALS (11 sets, daily range): BP systolic 92–123; BP diastolic 54–73; PULSE 75–89; RESP 17–20
[2017-04-16] MEDS: ALBUTEROL 18 GM INHALER INH SCH ×3 (02:00→14:00)
--- NOTE | 2017-04-16 06:47 | HKNOTE ---
DATE OF SERVICE: 04/15/2017 HISTORY OF PRESENT ILLNESS: The patient admitted with seizure activity in which we changed her medication to 1,000 of the Keppra twice a day as well as Topamax 25 mg twice a day, Neurontin 300 mg twice a day. The patient had no seizure activity. Seizure, admitted in the hospital. Her EEG showed postictal status. MEDICATIONS: 1. Keppra 1000 twice a day. 2. Topamax 25 mg twice a day. 3. Gabapentin 300 mg twice a day. PHYSICAL EXAMINATION: The patient is alert, awake, following simple commands. HEART: Regular rate and rhythm. LUNGS: Equal breath sounds. ABDOMEN: Soft and nontender. No tenderness. DINING ROOM BUSSER: Cranial nerve II: Pupils equal on both sides, reactive to light. Cranial nerves III, IV and : Extraocular muscles intact. Cranial nerve V: Equal sensation to face. Cranial nerve VII: Symmetrical face. Cranial nerve VIII: Decreased hearing bilaterally. Cranial nerves IX and X: Elevates palate. Cranial nerve XI: Elevates shoulder 5/5. Cranial nerve XII: With straight tongue. Motor exam: Moving both upper extremities. Decreased hand lock fitter. Sensation decreased for glove and sock area for light touch and temperature. Coordination: Gtnyoc-xf-vxxp test intact. ASSESSMENT AND PLAN: The patient is 62 years old with: 1. Underlying seizure disorder. Keep the patient on Keppra twice a day. Continue on Topamax 25 mg twice a day. We gave the patient Ativan 2 mg IV every 4 hours for seizure activity and to follow up the patient as an outpatient in one month for electroencephalogram for more evaluation treatment and keep the patient under seizure precautions from now. 2. History of depression with the patient on Wellbutrin 150 mg. Avoid increased does today from medication to avoid precipitation of seizure if. 3. Status post low backache. Continue the patient on Neurontin 300 mg twice a day and follow up the patient with nerve conduction study and electromyogram as an outpatient. Dictated By: Fili Nagel MD /alverot/ /Document#: [id number]
[2017-04-16] MEDS: DOCUSATE SODIUM 100 MG CAP PO PRN (08:09)
[2017-04-16] MEDS: MAGNESIUM HYDROXIDE 30ML CUP PO PRN (08:09)
[2017-04-16] MEDS: GABAPENTIN 300 MG CAP PO SCH (08:09)
[2017-04-16] MEDS: HEPARIN 5,000 UNIT/0.5 ML VIAL SC SCH (08:09)
[2017-04-16] MEDS: LEVETIRACETAM 500 MG TAB PO SCH (08:09)
[2017-04-16 10:02] LABS: EOSINOPHILS # 0.1 10^3/ul (0.0-0.5); EOSINOPHILS % 1.5 % (0.0-7.0); HEMATOCRIT 34.8 % (37.0-47.0); HEMOGLOBIN 10.1 g/dl (12.0-16.0); LYMPHOCYTES # 1.3 10^3/ul (0.8-2.9); LYMPHOCYTES % 27.7 % (15.0-51.0); MEAN CORPUSCULAR HEMOGLOBIN 22.1 pg (29.0-33.0); MEAN PLATELET VOLUME 10.8 fl (7.4-10.4); MONOCYTE # 0.4 10^3/ul (0.3-0.9); MONOCYTES % 9.2 % (0.0-11.0); NEUTROPHIL # 2.8 10^3/ul (1.6-7.5); NEUTROPHILS % 61.4 % (39.0-77.0); PLATELET COUNT 223 10^3/UL (140-415); RED BLOOD COUNT 4.58 10^6/ul (4.20-5.40); RED CELL DISTRIBUTION WIDTH 16.5 % (11.5-14.5); WHITE BLOOD COUNT 4.6 10^3/ul (4.8-10.8)
[2017-04-16 11:19] LABS: CALCIUM 8.9 mg/dl (8.4-10.2); CREATININE 0.69 mg/dl (0.44-1.00)
[2017-04-16 11:23] LABS: POTASSIUM 4.6 mmol/L (3.5-5.1)
[2017-04-16] MEDS: HYDROCODONE/APAP (5/325) TAB PO PRN (12:35)
[2017-04-16] MEDS ORDERED: LEVE-5 PO (14:09)
--- NOTE | 2017-04-16 14:11 | PDOCDIS ---
Discharge Instructions CONDITION Patient Condition: Stable HOME CARE INSTRUCTIONS: Special Diet: CARDIAC DIET ACTIVITY: Activity Restrictions Comment: Seizure precautions: no driving, swimming or bathing in tubs REFERRALS Other Referrals Follow up with your regular neurologist within 1 week. If you do not have a regular neurologist please schedule a follow up within 1-2 weeks with the one who saw you here in the [facility] Office Address [address] [place] [address] Office LIZETH MADRIGAL MD Apr 16, 2017 14:11
--- NOTE | 2017-04-16 14:12 | DS ---
Date/Time of Note Date/Time of Note DATE: 04/16/17 TIME: 14:12 Discharge Summary Admission/Discharge Info Admit Date/Time Apr 12, 2017 at 14:04 Discharge Date/Time Discharge Diagnosis seizure 2/2 AED nonadherence Patient Condition: Stable Consults neurology Procedures 04.12 MRI brain IMPRESSION: 1. No evidence for acute intracranial infarcts, hemorrhage, or acute intracranial pathology. 2. Mild chronic microvascular ischemic disease and diffuse volume loss. 3. Mild chronic bilateral ethmoid and maxillary sinus disease 04.12 NCCT head IMPRESSION: 1. No acute intracranial hemorrhage, transcortical infarction or mass effect. 2. Minimal intracranial atherosclerosis and mild chronic small vessel ischemic changes. 3. Mild generalized cerebral volume loss. 04.12 TTE Conclusions 1. Normal left ventricular systolic function. Normal left ventricular cavity size. Normal left ventricular wall thickness. Ejection fraction is visually estimated at 60 %. Tissue Doppler/Mitral Doppler indices are consistent with impaired relaxation (Stage I diastolic dysfunction). E/E`=9. spot EEG nl per neurology Hx of Present Illness A 61-year-old female with past medical history of emphysema, questionable CHF, high cholesterol and prior seizure since 1979, low back pain who has been feeling weak and dizziness for the last 48 hours. She went to her primary care doctor's office earlier today but ended up having tonic-clonic seizure which lasted about 1 minute. No tongue biting. No leakage of any stool or urine. She apparently did not hit her head as well. She denies any fevers or chills. No upper or lower GI bleeding. No nausea or vomiting. No diarrhea. No constipation. She has had seizures since 1979. Her last seizure activity was about eight months ago. Hospital Course 62 yo F with known h/o epilepsy admitted for seizures. Pt supposed to be on topiramate and Keppra at home but states she wasn't taking Keppra regularly. Neuroimaging and spot EEG unremarkable. No change in AEDs advised by neuro. Pt states she already has a restricted drivers license 2/2 her seizure history. DMV form submitted Pt with occ lightheadedness with standing too quickly thus home lasix was stopped. Pt advised to f/u with PCP within 2 weeks, neuro within 4 weeks copy of dc summary faxed to PCP's office prior to discharge Home Meds Active Scripts Levetiracetam* (Keppra*) 500 Mg Tablet, 1000 MG PO BID for 30 Days, #60 TAB Prov:LIZETH MADRIGAL MD 04/16/17 Reported Medications Tiotropium [place]* (Spiriva*) 18 Mcg Cap.w.dev, 1 CAP INHALATION DAILY, #30 CAP 04/12/17 Bupropion Hcl* (Bupropion XL*) 150 Mg Tab.er.24h, 150 MG PO DAILY, TAB.SA 04/12/17 Topiramate* (Topiramate*) 25 Mg Cap.sprink, 25 MG PO QPM, CAP 04/12/17 Albuterol Sulfate* (Ventolin HFA*) 18 Gm Hfa.aer.ad, 2 PUFF INHALATION Q6H, #1 INHALER 04/12/17 Gabapentin* (Gabapentin*) 300 Mg Capsule, 300 MG PO BID, #60 CAP 04/12/17 Discontinued Reported Medications Zolpidem Tartrate* (Zolpidem Tartrate*) 10 Mg Tablet, 10 MG PO QHS Y for INSOMNIA, #30 TAB 04/12/17 Furosemide* (Furosemide*) 40 Mg Tablet, 40 MG PO DAILY, TAB 04/12/17 Cyclobenzaprine Hcl* (Cyclobenzaprine Hcl*) 10 Mg Tablet, 10 MG PO Q8 Y for MUSCLE SPASMS, #60 TAB 04/12/17 Follow-up Plan neurology within 4 weeks PCP within 2 weeks Primary Care Provider [facility] Time spent on discharge: > 30 minutes Pending Labs Laboratory Tests Test 04/16/17 09:23 White Blood Count 4.610^3/ul (4.8-10.8) Red Blood Count 4.5810^6/ul (4.20-5.40) Hemoglobin 10.1g/dl (12.0-16.0) Hematocrit 34.8% (37.0-47.0) Mean Corpuscular Volume 76.0fl (82.0-101.0) Mean Corpuscular Hemoglobin 22.1pg (29.0-33.0) Mean Corpuscular Hemoglobin Concent 29.0g/dl (32.0-37.0) Red Cell Distribution Width 16.5% (11.5-14.5) Platelet Count 91892^3/UL (140-415) Mean Platelet Volume 10.8fl (7.4-10.4) Neutrophils % 61.4% (39.0-77.0) Lymphocytes % 27.7% (15.0-51.0) Monocytes % 9.2% (0.0-11.0) Eosinophils % 1.5% (0.0-7.0) Basophils % 0.0% (0.0-2.0) Nucleated Red Blood Cells % 0.0/100WBC (0.0-0.0) Neutrophils # 2.810^3/ul (1.6-7.5) Lymphocytes # 1.310^3/ul (0.8-2.9) Monocytes # 0.410^3/ul (0.3-0.9) Eosinophils # 0.110^3/ul (0.0-0.5) Basophils # 0.010^3/ul (0.0-0.1) Nucleated Red Blood Cells # 0.010^3/ul (0.0-0.0) Sodium Level 139mmol/L (135-144) Potassium Level 4.6mmol/L (3.5-5.1) Chloride Level 105mmol/L (97-110) Carbon Dioxide Level 27mmol/L (21-31) Anion Gap 12 (8-16) Blood Urea Nitrogen 19mg/dl (7-20) Creatinine 0.69mg/dl (0.44-1.00) Glucose Level 118mg/dl (70-220) Calcium Level 8.9mg/dl (8.4-10.2) Copies To: CC: CORRIE VÁZQUEZ MD, ELLEN MD Apr 16, 2017 14:12
== END 2017-04-16 17:05 | disposition home or self-care (01) | DRG 101 ==
LOC: E/R 09:58 → MS4 14:04
PROVIDERS: ADMIT Internal Medicine; ATTEND Internal Medicine
PROC: 4A00X4Z Measurement of Central Nervous Electrical Activity, External Approach (ICD-10-PCS; principal; 2017-04-13)
PROC: 3E0234Z Introduction of Serum, Toxoid and Vaccine into Muscle, Percutaneous Approach (ICD-10-PCS; 2017-04-14)
DX: G40.909 Epilepsy, unspecified, not intractable, without status epilepticus (principal); I11.0 Hypertensive heart disease with heart failure; I50.9 Heart failure, unspecified; G47.00 Insomnia, unspecified; Z91.14 Patient's other noncompliance with medication regimen; E78.00 Pure hypercholesterolemia, unspecified; J43.9 Emphysema, unspecified; M54.5 Low back pain; F32.9 Major depressive disorder, single episode, unspecified; Z87.891 Personal history of nicotine dependence; Z23 Encounter for immunization
CPT/HCPCS: 36415; 70450; 70551; 71010; 80048; 80053; 80061; 80307; 82550; 82553; 83036; 83735; 83880; 84100; 84439; 84443; 84484; 85025; 90686; 93005; 93306; 95819; 96374; 96375; 97110; 97162; 97530; J1644; J1953; J2060; J2270; J2405; J7030